=== PATIENT | female | born 1945 | race Hispanic/Latino ===

== ENCOUNTER 2021-11-23 17:47 | Observation (INO) | payer MEDICARE, BC ==
[2021-11-23 18:18] VITALS: BMI 24.0
[2021-11-23] MEDS ORDERED: Ondansetron PF 4 MG/2 ML Vial IVP PRN (18:46)
[2021-11-23] MEDS ORDERED: Senokot S 8.6-50 MG TAB PO PRN (18:46)
[2021-11-23] MEDS ORDERED: HYDROcodone/Acetaminophen 5/325 mg Tablet PO PRN (18:46)
[2021-11-23] MEDS ORDERED: Acetaminophen 325 MG TAB PO PRN (18:46)
[2021-11-23] MEDS ORDERED: Ibuprofen 400 MG TAB PO PRN (18:52)
[2021-11-23] MEDS ORDERED: Fioricet 325/50/40 mg Tablet PO PRN (18:52)
[2021-11-23] MEDS ORDERED: ALPRAZolam 0.25 MG TAB PO PRN (19:02)
[2021-11-23 19:58] LABS: Troponin I Less than 0.010 ng/mL (< 0.028)
[2021-11-23] MEDS: Pregabalin 50 MG CAP PO SCH (20:04)
[2021-11-23 22:19] LABS: Troponin I Less than 0.010 ng/mL (< 0.028)
[2021-11-24 04:58] LABS: #Eosinphils 0.1 10x3/uL (0.0-0.5); #Monocytes 0.5 10x3/uL (0.0-1.1); #Neutrophils 3.8 10x3/uL (1.5-8.4); %Basophils 0.3 % (0.0-2.0); %Eosinophils 1.7 % (0.0-6.0); %Lymphocytes 25.9 % (18.0-47.0); %Monocytes 8.3 % (0.0-10.0); %Neutrophils 63.5 % (40.0-75.0); Hemoglobin 12.4 g/dL (12.0-15.5); Mean Corpuscular HGB CONC 32.5 g/dL (32.0-36.0); Mean Corpuscular Hemoglobin 30.5 pg (27.0-33.0); Mean Corpuscular Volume 93.9 fl (81.6-98.3); Mean Platelet Volume 9.8 fl (7.4-10.4); Platelet Count 209 10x3/uL (150-450); RBC Distribution Width 12.9 % (11.5-14.5); Red Blood Cell (RBC) Count 4.07 10x6/uL (3.90-5.03); White Blood Cell (WBC) Count 5.9 10x3/uL (3.5-10.5)
[2021-11-24 05:11] LABS: ALT (SGPT) 8 U/L (8-55); AST (SGOT) 14 U/L (5-34); Albumin 3.8 g/dL (3.4-4.8); Alkaline Phosphatase 64 U/L (40-110); Anion Gap 11 mmol/L (10-20); BUN (Urea Nitrogen) 18 mg/dL (9.8-20.1); Bilirubin, Total 0.4 mg/dL (0.2-1.2); Calc. Creatinine Clearance 59 mL/min (70-130); Calcium 9.3 mg/dL (7.8-10.44); Carbon Dioxide 27 mmol/L (23-31); Chloride 108 mmol/L (98-107); Cholesterol 157 mg/dl (< 200 Desired); Estimated GFR 74; Globulin 2.4 g/dL (2.4-3.5); Glucose 93 mg/dL (83-110); HDL Cholesterol 52 mg/dL (>60 Neg Risk); LDL Cholesterol, Calculated 82 mg/dL; Potassium 4.4 mmol/L (3.5-5.1); Protein, Total 6.2 g/dL (5.8-8.1); Sodium 142 mmol/L (136-145); Triglycerides 113 mg/dL (Less than 150)
[2021-11-24] MEDS ORDERED: Levothyroxine Sodium 25 MCG TAB PO SCH (06:00)
[2021-11-24] MEDS: Magnesium Oxide 250 MG TAB PO SCH ×2 (08:50→08:51)
[2021-11-24] MEDS: Pregabalin 50 MG CAP PO SCH ×2 (08:50→20:54)
[2021-11-24] MEDS ORDERED: GARLIC 100 MG PO SCH (09:00)
[2021-11-24] MEDS ORDERED: Rosuvastatin 10 MG TAB PO SCH (09:00)
[2021-11-24] MEDS ORDERED: Cholecalciferol 1,000 UNITS (25 MCG) TAB PO SCH (09:00)
[2021-11-24] MEDS ORDERED: DULoxetine 30 MG CAP PO SCH (09:00)
[2021-11-24] MEDS ORDERED: Aspirin Chewable 81 MG TAB PO SCH (09:00)
[2021-11-24] MEDS ORDERED: FLAXSEED OIL 1000 MG PO SCH (09:00)
[2021-11-24] MEDS ORDERED: Heparin 10,000 UNITS/ 10 ML VIAL ONE (12:44)
[2021-11-24] MEDS ORDERED: Iopamidol 300 61% 100 ML VIAL FS ONE (12:44)
[2021-11-24] MEDS ORDERED: Nitroglycerin 50 MG/250 ML BOT 250 ML ONE (12:44)
[2021-11-24] MEDS ORDERED: Adenosine 6 MG/2 ML VIAL ONE (12:46)
[2021-11-24 12:55] LABS: Hemoglobin A1c 5.6 % (4.0-6.0)
[2021-11-24] MEDS ORDERED: Lidocaine 1% 20 ML MDV ONE (15:51)
[2021-11-24] MEDS ORDERED: Midazolam HCl 2 mg/2 ml Vial ONE (15:52)
[2021-11-24] MEDS ORDERED: Fentanyl 100 MCG/2 ML VIAL ONE (15:52)
[2021-11-24] MEDS ORDERED: cloNIDine 0.1 MG TAB ONE (16:38)
[2021-11-24] MEDS ORDERED: Sodium Chloride 0.9% 1,000 ML IV SCH (18:00)
[2021-11-24] MEDS ORDERED: Sodium Chloride 0.9% 200 ML IV PRN (18:00)
[2021-11-24] MEDS ORDERED: Acetaminophen/Codeine 30-300mg Tablet PO PRN ×2 (18:00)
[2021-11-24] MEDS ORDERED: Nitroglycerin 0.4 MG TAB (25 Tab Bottle) SL PRN (18:00)
[2021-11-24 20:22] VITALS: BP 118/68; TEMP 98.2
== END 2021-11-24 21:50 | disposition short-term general hospital (02) ==
LOC: INTOOBSV 17:47 → CSHTELE 17:47
PROVIDERS: ADMIT Internal Medicine; ATTEND Internal Medicine
PROC: 4A023N7 Measurement of Cardiac Sampling and Pressure, Left Heart, Percutaneous Approach (ICD-10-PCS; principal; 2021-11-24)
PROC: B2111ZZ Fluoroscopy of Multiple Coronary Arteries using Low Osmolar Contrast (ICD-10-PCS; 2021-11-24)
DX: I25.118 Atherosclerotic heart disease of native coronary artery with other forms of angina pectoris (principal); I25.84 Coronary atherosclerosis due to calcified coronary lesion; I10 Essential (primary) hypertension; E03.9 Hypothyroidism, unspecified; E78.2 Mixed hyperlipidemia; K21.9 Gastro-esophageal reflux disease without esophagitis; R51.9 Headache, unspecified; G31.84 Mild cognitive impairment of uncertain or unknown etiology; M17.0 Bilateral primary osteoarthritis of knee; R73.03 Prediabetes; R05.3 Chronic cough; E55.9 Vitamin D deficiency, unspecified; B02.29 Other postherpetic nervous system involvement; Z86.16 Personal history of COVID-19; Z79.890 Hormone replacement therapy; Z79.899 Other long term (current) drug therapy; Z88.0 Allergy status to penicillin; Z20.822 Contact with and (suspected) exposure to COVID-19
CPT/HCPCS: 71045; 71275; 74174; 80053; 80061; 83036; 83690; 84484 ×2; 85025; 85379; 93005 ×2; 93459; 94760; C1769; U0002; 36415; 84443; 93010; 99152; 99153; G0378; J0153; J1644; J2250; J3010; J7050; Q9967

== ENCOUNTER 2025-04-19 09:07 | Outpatient (CLI) | payer MEDICARE ==
[2025-04-19 10:14] LABS: Estimated GFR - POC 64.0
[2025-04-19] MEDS ORDERED: Iopamidol 300 61% 100 ML VIAL FS ONE (11:34)
== END 2025-04-19 09:08 | disposition home or self-care (01) ==
LOC: CSHCT 09:07
PROVIDERS: ATTEND Internal Medicine Gastroenterology
DX: R10.9 Unspecified abdominal pain (principal); R14.0 Abdominal distension (gaseous)
CPT/HCPCS: 74177; 82565; Q9967